=== PATIENT | male | born 1975 | race Caucasian/White ===

== ENCOUNTER 2017-04-14 17:38 | Emergency (ER) | payer OTHER ==
[~2017-04-14] VITALS: Ht 177.8 cm; Wt 180.0 kg
[2017-04-14 17:42] VITALS: BP 122/72; PULSE 86; RESP 16; O2SAT 96
--- NOTE | 2017-04-14 18:22 | DRSVH ---
PROCEDURE: X-RAY RIGHT CLAVICLE, COMPLETE ([id number]) INDICATIONS: injury TECHNIQUE: 2 views of the clavicle were acquired. COMPARISON: None. FINDINGS: Bones: No fractures or dislocations. No suspicious bony lesions. Soft tissues: No suspicious soft tissue calcifications. IMPRESSION: No fracture. No osseous lesion. If there are persistent symptoms or clinical suspicion f or pathology, then repeat radiographs or advanced imaging (CT, MRI or bone scan) should be considered for further evaluation. Dictated by: Lillie Cowart MD, PhD on 04/14/2017 at 18:20 Approved by: Lillie Cowart MD, PhD on 04/14/2017 at 18:20
--- NOTE | 2017-04-14 18:23 | DRSVH ---
PROCEDURE: X-RAY RIGHT SHOULDER, MINIMUM TWO VIEWS ([id number]) INDICATIONS: injury TECHNIQUE: 3 views of the shoulder were acquired. COMPARISON: None. FINDINGS: Bones: No fractures or dislocations. No suspicious bony lesions. Visualized ribs appear intact. Soft tissues: No suspicious soft tissue calcifications. IMPRESSION: No fracture. No osseous lesion. If there are persistent symptoms or clinical suspicion f or pathology, then repeat radiographs or advanced imaging (CT, MRI or bone scan) should be considered for further evaluation. Dictated by: Lillie Cowart MD, PhD on 04/14/2017 at 18:20 Approved by: Lillie Cowart MD, PhD on 04/14/2017 at 18:21
--- NOTE | 2017-04-14 18:33 | ED.REPORT ---
HPI-Extremity Problem Upper Date of Service Apr 14, 2017 ED Provider: Josiah Kiran PA-C Otherwise healthy 41-year-old male presents with a chief complaint of right shoulder pain. Patient reports the pain started when he was tackled playing rugby and had a shoulder pushed into the turf. Denies numbness, tingling or weakness in his right arm. Reports he is right-handed. Denies neck pain. Denies loss of consciousness but admits "seeing stars" denies use of blood thinners, vomiting, headache, seizure activity. Nursing Notes Stated Complaint: HURT RIGHT SHOULDER/COLLAR BONE Chief Complaint: Extremity Trauma Nursing Notes Reviewed: Yes Allergies: Coded Allergies: No Known Allergies (Unverified , 04/14/17) General Time Seen by MD: 17:59 Chief Complaint Shoulder injury right Past Medical History Past Medical History Denies Review of Systems Review of Systems Note: Negative unless stated otherwise in history of present illness Physical Exam General: Well appearing, well developed, well nourished, no acute distress. Right shoulder: Normal to inspection, mild tenderness over mid shaft clavicle, negative deformity. Positive crossarm test, negative Spring sign. Right elbow: Normal to inspection, nontender, full range of motion Right arm: Radial pulses 2+, liquid fertilizer servicer strength intact, sensation intact Head: Atraumatic, normocephalic. Eyes: No scleral icterus or injection. No discharge. Vision grossly intact. ENT: Voice clear, hearing grossly intact. Respiratory: Regular rate and rhythm. Breath sounds present, clear to auscultation and equal bilaterally. No respiratory distress. No increased work of breathing, speaks in complete sentences. Cardiovascular: Regular rate and rhythm, without murmur, gallop or rub. No pedal edema. Gastrointestinal: Abdomen flat and non-tender without guarding or rebound. Bowel sounds normoactive. Skin: Warm and dry. Neurological: Grossly nonfocal. Psychological: Alert and oriented. Speech appropriate, linear and logical. Behavior appropriate. Initial Vital Signs Vital Signs (First) Date Time Temp Pulse Resp B/P Pulse Ox O2 Delivery O2 Flow Rate FiO2 04/14/17 17:42 36.7 86 16 122/72 96 Room Air Initial VS: Vital signs normal Interpretation & Diagnostics X-Ray Interpretation Xray Interpretation: PROCEDURE: X-RAY RIGHT SHOULDER, MINIMUM TWO VIEWS ([id number]) INDICATIONS: injury IMPRESSION: No fracture. No osseous lesion. If there are persistent symptoms or clinical suspicion for pathology, then repeat radiographs or advanced imaging (CT, MRI or bone scan) should be considered for further evaluation. Interpretation / Wet Read by: Interpret - RadiologistCathy Xray Interpretation: PROCEDURE: X-RAY RIGHT CLAVICLE, COMPLETE ([id number]) INDICATIONS: injury IMPRESSION: No fracture. No osseous lesion. If there are persistent symptoms or clinical suspicion for pathology, then repeat radiographs or advanced imaging (CT, MRI or bone scan) should be considered for further evaluation. Interpretation / Wet Read by: Interpret - RadiologistCathy Re-Eval/Medical Decision Med Decision/Clinical Course Otherwise healthy 41-year-old male presents with a complaint of right shoulder pain after being tackled playing rugby. He also reports "seeing stars" denies loss of consciousness, vomiting, seizure, headache. Denies neck pain. Physical examination reveals a shoulder normal to inspection with mild tenderness over the medial aspect of the clavicle. Negative Spring sign, positive crossarm test. Neurovascularly intact. X-ray reveals no fracture. I believe this is a sprain of the shoulder, I am reassured regarding dislocation, fracture. There is also the possibility of a closed head injury, though I feel came in head CT rules support deferring CT scan. We discussed postconcussive syndrome and the importance of avoiding further head injury if there are symptoms of headache, nausea, sleepiness. These are symptoms that the patient currently denies. Advised rest, ice, [id number] analgesia. Advise primary care follow-up and gave emergent return precautions. Patient verbalizes understanding of and content to the plan. Discharge & Departure Impression: Primary Impression: Shoulder sprain Encounter type: initial encounter Shoulder sprain type: unspecified sprain Laterality: right Qualified Code: S43.401A - Unspecified sprain of right shoulder joint, initial encounter Disposition: Home Discharge Condition All VS Reviewed: Yes Condition: Stable Patient Instructions: Shoulder Sprain (ED) Additional Instructions: Evaluation of right shoulder pain and emergency department consists of history, physical examination x-ray lab which are reassuring as are unlikely to have a fracture. I believe this is most likely a sprain in your shoulder, which should resolve without further treatment. I believe you are stable and safe to be discharged. Rest the affected limb as much as possible over the next few days. Apply ice to the affected area 2-3 times over the next 24 hours. The pain is best treated with 600 mg of ibuprofen (Advil, Motrin) every 6 hours , or 1000 mg of acetaminophen (Tylenol) every 6 hours. These drugs can be taken at the same time for more severe pain. Follow-up with your primary care provider if your symptoms are not significantly improved in about a week. Return to emergency department for any new or worsening symptoms including numbness or tingling in your hands, increasing headache, vomiting, seizure activity. Referrals: Hilda Lawler (PCP) EDSupervising Provider for APC: Donald Ko MD copies to: Hilda Lawler Seth PA-C Apr 14, 2017 18:33
[2017-04-14 19:09] VITALS: BP 122/72; PULSE 86; RESP 16; O2SAT 96
== END 2017-04-14 19:00 | disposition home or self-care (01) ==
LOC: SED 17:38
DX: S43.491A Other sprain of right shoulder joint, initial encounter (principal); W22.8XXA Striking against or struck by other objects, initial encounter; Y93.63 Activity, rugby; Y92.9 Unspecified place or not applicable; Y99.8 Other external cause status